=== PATIENT | male | born 1995 | race African-American/Black ===

== ENCOUNTER 2017-03-13 20:40 | Emergency (ER) | payer BC ==
[~2017-03-13] VITALS: Ht 180.3 cm; Wt 96.8 kg
[2017-03-13 20:43] VITALS: BP 147/83; PULSE 68; RESP 16; TEMP 98.6; O2SAT 99
[2017-03-13] MEDS ORDERED: LIDOCAINE VISCOUS 2% SOLN 15 ML UDC PO ONE (22:00)
[2017-03-13] MEDS ORDERED: PANTOPRAZOLE SOD 40 MG DELAYED RELEASE TAB PO ONE (22:00)
[2017-03-13] MEDS ORDERED: ALUMINUM/MAGNESIUM/SIMETH 30 ML CUP PO ONE (22:00)
--- NOTE | 2017-03-13 22:05 | PD ---
HPI Chief Complaint: GI Complaint Time Seen by Provider: 21:53 Travel History International Travel<30 days: No Contact w/Intl Traveler<30days: No Traveled to known affect area: No History of Present Illness HPI 21-year-old male here for evaluation of what appears to be esophageal reflux. The patient reports that since yesterday after he eats he notices a discomfort in his epigastric region described as a burning. He states that he feels as though the food sits there, then he slowly brings up a small portion of the food followed by whitish/phlegm appearing mucus. He reports that he noted some red in it yesterday, but is unsure if there was blood. States that he had a recurrence of the symptoms this evening. He is currently pain-free. No history of abdominal surgeries. No fevers or chills. No chest pain or dyspnea. He tried taking Tums, but reports he did not have any relief. Patient reports that he had a bowel movement while waiting in triage. He denies alcohol, tobacco, or illicit drug use. He is a student at [employer] Past Medical History Medical History: Denies Significant Hx Tetanus Vaccination: > 5 Years Past Surgical History Other Surgery: Yes (BILATERAL FEET) Social History Alcohol Use: No Tobacco Use: No Substance Use: No Allergies-Medications (Allergen,Severity, Reaction): Coded Allergies: No Known Allergies (Unverified , 03/13/17) Reported Meds & Prescriptions Reported Meds & Active Scripts Active Protonix (Pantoprazole Sodium) 40 Mg Tab 40 Mg PO DAILY Review of Systems Except as stated in HPI: all other systems reviewed are Neg Physical Exam Narrative GENERAL: Well-developed, well-nourished, comfortable, no apparent distress. SKIN: Focused skin assessment warm/dry. HEAD: Atraumatic. Normocephalic. EYES: Pupils equal and round. No scleral icterus. No injection or drainage. ENT: Mucous membranes pink and moist. CARDIOVASCULAR: Regular rate and rhythm. No murmur appreciated. RESPIRATORY: No accessory muscle use. Clear to auscultation. Breath sounds equal bilaterally. GASTROINTESTINAL: Abdomen soft, non-tender, nondistended. Normal bowel sounds. No hernias. No masses. MUSCULOSKELETAL: No obvious deformities. No clubbing. No cyanosis. No edema. NEUROLOGICAL: Awake and alert. No obvious cranial nerve deficits. Motor grossly within normal limits. Normal speech. PSYCHIATRIC: Appropriate mood and affect; insight and judgment normal. Data Data Last Documented VS Vital Signs Date Time Temp Pulse Resp B/P (MAP) Pulse Ox O2 Delivery O2 Flow Rate FiO2 03/13/17 20:43 98.6 68 16 147/83 (104) 99 Room Air Orders Orders Al-Mag Hy-Si 40-40-4 Mg/Ml Liq (Mag-Al P (03/13/17 22:00) Lidocaine 2% Viscous (Xylocaine 2% Visco (03/13/17 22:00) Pantoprazole (Protonix) (03/13/17 22:00) Complete Blood Count With Diff (03/13/17 22:11) Comprehensive Metabolic Panel (03/13/17 22:11) Lipase (03/13/17 22:11) Prothrombin Time / Inr (Pt) (03/13/17 22:11) Act Partial Throm Time (Ptt) (03/13/17 22:11) Ct Abd/Pel W Iv Contrast(Rout) (03/13/17 22:11) Iv Access Insert/Monitor (03/13/17 22:11) Ecg Monitoring (03/13/17 22:11) Oximetry (03/13/17 22:11) Sodium Chlor 0.9% 1000 Ml Inj (Ns 1000 M (03/13/17 22:11) Sodium Chloride 0.9% Flush (Ns Flush) (03/13/17 22:15) Diatrizoate Liq ( Gastronathan Liq) (03/13/17 22:15) Oral Contrast - Adult (03/13/17 22:18) Iohexol 350 Inj (Omnipaque 350 Inj) (03/13/17 23:48) Urinalysis - C+S If Indicated (03/14/17 00:13) Labs Laboratory Tests Test 03/13/17 22:14 03/14/17 00:15 White Blood Count 6.2 TH/MM3 Red Blood Count 4.62 MIL/MM3 Hemoglobin 14.1 GM/DL Hematocrit 41.5 % Mean Corpuscular Volume 89.9 FL Mean Corpuscular Hemoglobin 30.6 PG Mean Corpuscular Hemoglobin Concent 34.0 % Red Cell Distribution Width 12.2 % Platelet Count 238 TH/MM3 Mean Platelet Volume 8.6 FL Neutrophils (%) (Auto) 43.0 % Lymphocytes (%) (Auto) 45.4 % Monocytes (%) (Auto) 10.1 % Eosinophils (%) (Auto) 0.9 % Basophils (%) (Auto) 0.6 % Neutrophils # (Auto) 2.7 TH/MM3 Lymphocytes # (Auto) 2.8 TH/MM3 Monocytes # (Auto) 0.6 TH/MM3 Eosinophils # (Auto) 0.1 TH/MM3 Basophils # (Auto) 0.0 TH/MM3 CBC Comment DIFF FINAL Differential Comment Prothrombin Time 11.5 SEC Prothromb Time International Ratio 1.1 RATIO Activated Partial Thromboplast Time 27.3 SEC Blood Urea Nitrogen 12 MG/DL Creatinine 1.04 MG/DL Random Glucose 79 MG/DL Total Protein 8.1 GM/DL Albumin 4.3 GM/DL Calcium Level 9.2 MG/DL Alkaline Phosphatase 95 U/L Aspartate Amino Transf (AST/SGOT) 37 U/L Alanine Aminotransferase (ALT/SGPT) 56 U/L Total Bilirubin 1.0 MG/DL Sodium Level 139 MEQ/L Potassium Level 4.1 MEQ/L Chloride Level 102 MEQ/L Carbon Dioxide Level 27.4 MEQ/L Anion Gap 10 MEQ/L Estimat Glomerular Filtration Rate 112 ML/MIN Lipase 53 U/L Urine Color YELLOW Urine Turbidity CLEAR Urine pH 6.5 Urine Specific Flushing 1.007 Urine Protein NEG mg/dL Urine Glucose (UA) NEG mg/dL Urine Ketones 10 mg/dL Urine Occult Blood NEG Urine Nitrite NEG Urine Bilirubin NEG Urine Urobilinogen LESS THAN 2.0 MG/DL Urine Leukocyte Esterase NEG Urine RBC LESS THAN 1 /hpf Urine WBC 1 /hpf Urine Mucus FEW /lpf Microscopic Urinalysis Comment CULT NOT INDICATED MDM Medical Decision Making Medical Screen Exam Complete: Yes Emergency Medical Condition: Yes Differential Diagnosis GERD, gastritis, peptic ulcer disease, acute surgical/intra-abdominal process unlikely. Yani-Tyler tears, Boerhaave syndrome unlikely Narrative Course Vital signs show heart rate 68, blood pressure 147/83, pulse ox 99% on room air , oral temp of 98.6F. Patient is overall very comfortable appearing. There is no tenderness on his abdominal exam. No masses felt. He is not having any chest pain. Lung sounds are clear and equal bilaterally. There is no crepitus along his chest wall. At this point I do not believe there is an acute intra-abdominal/surgical process or imaging or labs at this time. Patient likely has GERD/gastritis, and plan is to start him on Protonix and have him follow-up with a primary care physician or professor of public administration as an outpatient. Patient advised on when to return to the emergency department. He verbalizes understanding and agreement with plan. As the patient was about to be discharged he called his mother whom I spoke to on the phone and she is concerned about her child who does not usually complain about pain and would like more of a workup. She tells me that he has history of fatty liver. Basic labs and a CT abdomen pelvis will be performed. CBC is essentially unremarkable. CMP is unremarkable. Lipase is 53. UA shows 10 ketones, few mucus, not suggestive of UTI, no hematuria. CT abdomen pelvis: CONCLUSION: 1. Normal-appearing appendix. 2. No definitive findings to explain patient's upper abdominal pain. 3. Bladder is decompressed which accentuates the bladder wall. However, there is mild diffuse bladder wall thickening. This finding is nonspecific and of uncertain clinical significance. However, differential considerations include some degree of bladder outlet obstruction versus neurogenic bladder versus chronic cystitis. Patient was made aware of all findings. He was given a GI cocktail and a dose of Protonix and feels improved. He is resting comfortably. There are no peritoneal signs on his abdominal exam. He is stable for discharge home with further workup as an outpatient with his primary care physician, a professor of public administration, and a urologist. I will given the information to the professor of public administration and urologist oracle application architect with whom to follow-up with this week. He'll be started on Protonix as he likely has gastritis or peptic ulcer disease. He was advised on when to return to the emergency department. He verbalizes understanding and agreement with plan. Diagnosis Primary Impression: GERD (gastroesophageal reflux disease) Qualified Codes: K21.9 - Gastro-esophageal reflux disease without esophagitis Additional Impressions: Bladder wall thickening Epigastric abdominal pain Referrals: Du Espana MD 3 days Healthcare Liaison Primary Care Physician 3 days Additional Instructions: Follow-up with a primary care physician this week. Follow-up with professor of public administration Dr. Espana or a professor of public administration of your choice this week. Follow-up with urologist Dr. Skaggs or a professor of public administration of your choice this week. Take Protonix as prescribed. Return to the emergency department for worsening symptoms or any other concerns. Scripts Pantoprazole (Protonix) 40 Mg Tab 40 MG PO DAILY for Reflux, #30 TAB 2 Refills Prov: Caden Chávez MD 03/13/17 Disposition: 01 DISCHARGE HOME Condition: Stable Caden Chávez MD Mar 13, 2017 22:05
[2017-03-13] MEDS ORDERED: PROT40TA PO (22:06)
[2017-03-13] MEDS ORDERED: SODIUM CHLOR 0.9% 1000 ML INJ 1,000 ML IV SCH (22:11)
[2017-03-13] MEDS ORDERED: DIATRIZOATE MEGLUM/DIATRIZOATE SOD 9 ML CUP PO ONE (22:15)
[2017-03-13] MEDS ORDERED: SODIUM CHLORIDE 0.9% FLUSH 10 ML FLUSH IV FLUSH PRN (22:15)
[2017-03-13 23:13] LABS: INTERNATIONAL NORMALIZED RATIO 1.1 RATIO; PROTHROMBIN TIME - PATIENT 11.5 SEC (9.8-11.6)
[2017-03-13 23:15] LABS: AUTOMATED NEUTROPHIL # 2.7 TH/MM3 (1.8-7.7); BASOPHIL % 0.6 % (0.0-2.0); EOSINOPHIL # 0.1 TH/MM3 (0-0.4); EOSINOPHIL % 0.9 % (0.0-4.0); HEMATOCRIT 41.5 % (39.0-51.0); HEMOGLOBIN 14.1 GM/DL (13.0-17.0); LYMPH % 45.4 % (9.0-44.0); LYMPHOCYTE # 2.8 TH/MM3 (1.0-4.8); MEAN CELL VOLUME 89.9 FL (80.0-100.0); MEAN CORPUSCULAR HEMOGLOBIN 30.6 PG (27.0-34.0); MEAN PLATELET VOLUME 8.6 FL (7.0-11.0); MONO % 10.1 % (0.0-8.0); MONOCYTE # 0.6 TH/MM3 (0-0.9); PLATELET COUNT 238 TH/MM3 (150-450); RED BLOOD COUNT 4.62 MIL/MM3 (4.50-5.90); RED CELL DISTRIBUTION WIDTH 12.2 % (11.6-17.2); WHITE BLOOD COUNT 6.2 TH/MM3 (4.0-11.0)
[2017-03-13 23:21] LABS: ALT (GPT) 56 U/L (9-52)
[2017-03-13 23:23] LABS: ALKALINE PHOSPHATASE 95 U/L (45-117); TOTAL PROTEIN 8.1 GM/DL (6.4-8.2)
[2017-03-13 23:24] LABS: ALBUMIN 4.3 GM/DL (3.4-5.0); AST (GOT) 37 U/L (15-39); BICARBONATE 27.4 MEQ/L (21.0-32.0); BLOOD UREA NITROGEN 12 MG/DL (7-18); CALCIUM 9.2 MG/DL (8.5-10.1); CHLORIDE 102 MEQ/L (98-107); CREATININE 1.04 MG/DL (0.60-1.30); GLOMERULAR FILTRATION RATE 112 ML/MIN (>89); GLUCOSE,RANDOM 79 MG/DL (74-106); LIPASE 53 U/L (73-393); SODIUM (NA) 139 MEQ/L (136-145)
[2017-03-13] MEDS ORDERED: IOHEXOL 350 MG/ML 10 ML VIAL (for RAD DIAG) IVCONTRAST ONE (23:48)
--- NOTE | 2017-03-14 00:05 | RADRPT ---
EXAM DATE/TIME: 03/13/2017 23:46 [facility] COMPARISON: No previous studies available for comparison. INDICATIONS : Upper abdominal pain. IV CONTRAST: 100 cc Omnipaque 350 (iohexol) IV ORAL CONTRAST: Prescribed oral contrast ingested. RADIATION DOSE: 10.39 CTDIvol (mGy) MEDICAL HISTORY : None SURGICAL HISTORY : None. ENCOUNTER: Initial ACUITY: 1 day PAIN SCALE: 5/10 LOCATION: upper quadrant abdomen TECHNIQUE: Volumetric scanning of the abdomen and pelvis was performed. Using automated exposure control and ad justment of the mA and/or kV according to patient size, radiation dose was kept as low as reasonably achievable to obtain optimal diagnostic quality images. DICOM format image data is available electro nically for review and comparison. FINDINGS: LOWER LUNGS: The visualized lower lungs are clear. LIVER: Homogeneous density without lesion. There is no dilation of the biliary tree. No calcified gallston es. SPLEEN: Normal size without lesion. PANCREAS: Within normal limits. KIDNEYS: Normal in size and shape. There is no mass, stone or hydronephrosis. ADRENAL GLANDS: Within normal limits. VASCULAR: There is no aortic aneurysm. BOWEL/MESENTERY: The stomach, small bowel, and colon demonstrate no acute abnormality. Appendix is visualized and flavia ears unremarkable. There is no free intraperitoneal air or fluid. ABDOMINAL WALL: Within normal limits. RETROPERITONEUM: There is no lymphadenopathy. BLADDER: Bladder is partially decompressed which accentuates the bladder wall with apparent mild diffuse bladd er wall thickening. REPRODUCTIVE: Within normal limits. INGUINAL: There is no lymphadenopathy or hernia. MUSCULOSKELETAL: Within normal limits for patient age. CONCLUSION: 1. Normal-appearing appendix. 2. No definitive findings to explain patient's upper abdominal pain. 3. Bladder is decompressed which accentuates the bladder wall. However, there is mild diffuse bladder wall thickening. This finding is nonspecific and of uncertain clinical significance. However, differ ential considerations include some degree of bladder outlet obstruction versus neurogenic bladder deanne jayla chronic cystitis. Yohannes Graff MD on March 14, 2017 at 0:00 Board Certified Radiologist. This report was verified electronically.
[2017-03-14 00:50] LABS: BILIRUBIN, URINE NEG (NEG); BLOOD, URINE NEG (NEG); GLUCOSE,URINE NEG (NEG); KETONE, URINE 10 mg/dL (NEG); MUCUS URINE FEW /lpf (OCC); NITRITE,URINE NEG (NEG); PH, URINE 6.5 (5.0-8.5); URINE COLOR YELLOW (YELLW/STRAW); URINE LEUKOCYTE ESTERASE NEG (NEG)
[2017-03-14] MEDS ORDERED: PROT40TA PO (01:46)
== END 2017-03-14 02:13 | disposition home or self-care (01) ==
LOC: NEPD 20:40
DX: K21.9 Gastro-esophageal reflux disease without esophagitis (principal); R10.13 Epigastric pain
CPT/HCPCS: 74177; 80053; 81001; 83690; 85025; 85610; 85730; 96360; 99285; J7030; Q9963; Q9967